=== PATIENT | female | born 1990 | race Caucasian/White ===

== ENCOUNTER → 2017-03-04 | Outpatient (CLI) | payer BC, OTHER ==
[2017-03-04 18:37] LABS: ALT 28 U/L (9-52); AST 22 U/L (14-36); Alkaline Phosphatase 39 U/L (38-126); Anion Gap 10 mmol/L; Blood Urea Nitrogen 10 mg/dL (7-17); Calcium 9.7 mg/dL (8.4-10.2); Carbon Dioxide 27 mmol/L (22-30); Chloride 105 mmol/L (98-107); Cholesterol 169 mg/dL (<200); Glucose 82 mg/dL (74-99); HDL Cholesterol 57 mg/dL (40-60); Non-African American GFR(MDRD) >60 (>60 ml/min/1.73 sqM); Potassium 4.3 mmol/L (3.5-5.1); Sodium 142 mmol/L (137-145); Total Bilirubin 0.6 mg/dL (0.2-1.3); Total Protein 7.5 g/dL (6.3-8.2); Triglycerides 48 mg/dL (<150)
[2017-03-04 19:04] LABS: Basophils # (A) 0.1 k/uL (0-0.2); Basophils % (A) 2 %; CH 32.8; CHCM 35.8; Eosinophils # (A) 0.1 k/uL (0-0.7); Eosinophils % (A) 2 %; HCT 41.7 % (34.0-46.0); HDW 2.85; HGB 14.5 gm/dL (11.4-16.0); Luc % (Auto) 2; Lymphocytes # (A) 1.5 k/uL (1.0-4.8); Lymphocytes % (A) 32 %; MCHC 34.8 g/dL (31.0-37.0); Mean Platelet Volume 9.3; Monocytes # (A) 0.3 k/uL (0-1.0); Monocytes % (A) 6 %; Neutrophils # (A) 2.7 k/uL (1.3-7.7); Neutrophils % (A) 57 %; RBC 4.53 m/uL (3.80-5.40); RDW 12.6 % (11.5-15.5); WBC 4.7 k/uL (3.8-10.6); WBC (Perox) 4.62
== END ==
LOC: MMGSC 11:32
PROVIDERS: ATTEND Family Medicine
DX: Z00.00 Encounter for general adult medical examination without abnormal findings (principal)
CPT/HCPCS: 36415; 80053; 80061; 84439; 84443; 85025

== ENCOUNTER → 2017-09-30 | Outpatient (CLI) | payer OTHER ==
--- NOTE | 2017-09-30 16:25 | US ---
EXAMINATION TYPE: US abdomen complete DATE OF EXAM: 09/30/2017 COMPARISON: NONE CLINICAL HISTORY: 27-year-old female R10.12 LUQ PAIN, R10.11 RUQ PAIN. Patient stated has a palpable at RUQ and LUQ and pain is noted with palpation of them. TECHNIQUE: Multiple sonographic images of the abdomen were obtained. FINDINGS: Liver Length: 12.9 cm Gallbladder Wall: 0.1 cm CBD: 0.3 cm Spleen: 10.4 cm Right Kidney: 9.5 x 6.1 x 4.3 cm Left Kidney: 9.5 x 5.8 x 5.9 cm Pancreas: partially obscured by overlying bowel gas Liver: No focal lesion seen. Overall homogeneous echotexture. Gallbladder: wnl Evidence for sonographic Ayoub's sign: No CBD: wnl Spleen: wnl Right Kidney: No hydronephrosis Left Kidney: No hydronephrosis Upper IVC: wnl Abd Aorta: wnl No masses are seen at patient's complaint of palpable along the upper quadrants. IMPRESSION: 1. No discrete sonographic abnormality seen within the superficial tissues along the patient's upper quadrant site of palpable abnormality. 2. Suboptimal visualization of the pancreas. Otherwise, unremarkable sonographic examination of the a bdomen.
== END | disposition home or self-care (01) ==
LOC: RADUSWWP 10:52
PROVIDERS: ATTEND Family Medicine
DX: R10.11 Right upper quadrant pain (principal); R10.12 Left upper quadrant pain
CPT/HCPCS: 76700